=== PATIENT | male | born 1990 | race Two or more races ===

== ENCOUNTER 2019-07-14 21:17 | Emergency (ER) | payer SELFPAY ==
[~2019-07-14] VITALS: Ht 167.6 cm; Wt 81.8 kg
[2019-07-14] MEDS ORDERED: DIPHTH,PERTUSS(ACELL),TET TOX 0.5 ML DISP.SYRIN. VAX IM ONE (22:15)
--- NOTE | 2019-07-14 22:31 | RAD ---
FOREARM RIGHT History: Right arm trauma. Pain. Technique: 2 views right forearm. Comparison: None. Findings: Right distal forearm subcutaneous gas and swelling. No fracture. Olecranon enthesophyte. Impression: 1. No acute osseous abnormality. 2. Right distal forearm soft tissue injury with subcutaneous gas. Electronically signed by: Bao Aguilar DO (07/14/2019 10:28 PM) [facility]
--- NOTE | 2019-07-14 23:21 | PHYS DOC ---
Past Medical History Past Medical History: No Pertinent History (GAUTAM CELAYA APRN) Past Surgical History: No Surgical History (GAUTAM CELAYA APRN) Alcohol Use: Occasionally (GAUTAM CELAYA APRN) Attending Signature I have participated in the care of this patient and I have reviewed and agree with all pertinent clinical information above including history, exam, and recommendations. (RUT NAIDU MD) Adult General Chief Complaint Chief Complaint: UPPER EXTREMITY INJURY HPI HPI Patient is a 29 year old male male, accompanied by his , who presents to the emergency department with complaints of a laceration to his right forearm. Patient also complains of right forearm pain. He states he was changing a tire on his car when the lon collapsed and his forearm struck by the rim of the tire. He denies any pinning of his forearm or crushing of his forearm between the vehicle and the wheel. He denies any numbness, tingling, or decreased sensation of his upper extremity. He denies any decreased movement of his right arm. Patient states he is dominantly right-handed. He reports his last tetanus shot was greater than 5 years ago. He currently rates his pain a 10 out of 10 on pain scale, he denies any alleviating factors patient reports that the pain is increased with palpation. All other ROS is neg unless otherwise noted in HPI. (GAUTAM CELAYA APRN) Review of Systems Review of Systems See Above (GAUTAM CELAYA APRN) Current Medications Current Medications Current Medications Medications (Trade) Dose Ordered Sig/Alla Start Time Stop Time Status Last Admin Dose Admin Bacitracin (Bacitracin Zinc Oint Pkt) 1 pkt STK-MED ONCE 07/15/19 01:19 07/15/19 01:19 DC Diphtheria/ Tetanus/Acell Pertussis (Boostrix) 0.5 ml ONCE ONCE 07/14/19 22:15 07/14/19 22:16 DC 07/14/19 22:40 0.5 ML Lidocaine/ Epinephrine (LIDOCAINE 1%-EPI 1:100,000 Multi-Dose) 20 ml 1X ONCE 07/15/19 00:30 07/15/19 00:31 DC 07/15/19 01:06 20 ML Neomycin/ Polymyxin/ Bacitracin (Triple Antibiotic Ointment) 1 pkt 1X ONCE 07/15/19 01:30 07/15/19 01:31 DC 07/15/19 01:21 1 PKT (RUT NAIDU MD) Allergies Allergies Allergies Coded Allergies Type Severity Reaction Last Updated Verified No Known Drug Allergies 07/14/19 No (RUT NAIDU MD) Physical Exam Physical Exam See Above Constitutional: Well developed, well nourished, no acute distress, non-toxic appearance. [] HENT: Normocephalic, atraumatic, bilateral external ears normal, nose normal. [] Eyes: PERRLA, EOMI, conjunctiva normal, no discharge. [] Neck: Normal range of motion, no stridor. [] Cardiovascular:Heart rate regular rhythm Lungs & Thorax: Respirations even and unlabored, no retractions, no respiratory distress Skin: Warm, dry, no erythema, no rash; 8 cm deep laceration noted to anterior right mid forearm, bleeding controlled with pressure dressing and no visible foreign body Extremities: Right forearm: tenderness to palpation, no crepitus, no obvious deformity, 2+ radial pulse, movement and sensation intact Neurologic: Alert and oriented X 3, no focal deficits noted. [] Psychologic: Affect normal, judgement normal, mood normal. [] (GAUTAM CELAYA APRN) Current Patient Data Vital Signs Vital Signs Date Time Temp Pulse Resp B/P (MAP) Pulse Ox O2 Delivery O2 Flow Rate FiO2 07/15/19 01:10 64 129/66 (87) 98 Room Air 07/14/19 21:40 97.7 16 97.7 (RUT NAIDU MD) EKG EKG [] (GAUTAM CELAYA APRN) Radiology/Procedures Radiology/Procedures Laceration Repair by me: Anesthesia: 1% lidocaine locally with epi Location: Right forearm Tendon/Joint/Nerves: No injury Foreign body: None detected after copious irrigation and exploration with 420 ml of normal saline Technique: 17 Simple Interrupted Sutures with 4-0 Ethilon, and a single subcutaneous suture with 4 throws of 4-0 Ethilon Complexity: subcutaneous sutures as described above Post Closure Length: 8 cm Patient's bleeding was easily controlled in the department and there is no petty cation of anemia. No evidence of compartment syndrome, neurologic injury, vascular injury, open joint, tendon laceration, or foreign body. Patient is appropriate for outpatient follow up. (GAUTAM CELAYA APRN) Course & Med Decision Making Course & Med Decision Making Pertinent Labs and Imaging studies reviewed. (See chart for details) [] (GAUTAM CELAYA APRN) Dragon Disclaimer Dragon Disclaimer This electronic medical record was generated, in whole or in part, using a voice recognition dictation system. (GAUTAM CELAYA APRN) Departure Departure Impression: Primary Impression: Laceration of right forearm with complication Additional Impressions: Right forearm pain Right forearm injury Need for Tdap vaccination Disposition: HOME, SELF-CARE Condition: STABLE Referrals: NO PCP (PCP) Patient Instructions: Laceration Care, Adult, [id number], VIS, Tetanus, Diphtheria (Td); Tetanus, Diphtheria, Pertussis (Tdap) - CDC Additional Instructions: Keep the area clean and dry. You may take Tylenol or ibuprofen as needed for pain. Keep the dressing that was placed today on for 24 hours then change the dressing twice a day and apply antibiotic ointment to the area. Follow-up with your primary care doctor, or return to the emergency room in 14 days to have the sutures removed, sooner if you develop signs of infection including: redness, warmth, drainage, or a fever. Scripts Cephalexin (KEFLEX) 500 Mg Capsule 500 MG PO QID for 7 Days, #28 CAP 0 Refills Prov: GAUTAM CELAYA APRN 07/15/19 Problem Qualifiers Primary Impression: Laceration of right forearm with complication Encounter type: initial encounter Qualified Codes: S51.811A - Laceration without foreign body of right forearm, initial encounter Additional Impressions: Right forearm injury Encounter type: initial encounter Qualified Codes: S59.911A - Unspecified injury of right forearm, initial encounter GAUTAM CELAYA APRN Jul 14, 2019 23:21 RUT NAIDU MD Jul 15, 2019 04:01
[2019-07-15] MEDS ORDERED: LIDOCAINE 1%/EPI 1:100,000 20 ML VIAL. SQ ONE (00:30)
[2019-07-15 01:10] VITALS: BP 129/66
[2019-07-15] MEDS ORDERED: CEPH-264 PO (01:17)
[2019-07-15] MEDS ORDERED: BACITRACIN TOPICAL OINT PACKET. TP ONE (01:19)
[2019-07-15] MEDS ORDERED: NEOMY/BACITR/POLYMYXIN OINT PACKET. TP ONE (01:30)
== END 2019-07-15 01:32 | disposition home or self-care (01) ==
LOC: ER 21:17
DX: S51.811A Laceration without foreign body of right forearm, initial encounter (principal); M79.631 Pain in right forearm; Z23 Encounter for immunization; V09.9XXA Pedestrian injured in unspecified transport accident, initial encounter; Y93.89 Activity, other specified; Y92.89 Other specified places as the place of occurrence of the external cause; Y99.8 Other external cause status
CPT/HCPCS: 12034; 73090; 90471; 90715; 99284; J3490